=== PATIENT | female | born 1950 | race Caucasian/White ===

== ENCOUNTER 2019-05-13 13:32 | Emergency (ER) | payer MEDICARE, OTHER ==
[~2019-05-13] VITALS: Ht 157.5 cm; Wt 88.9 kg
[2019-05-13] MEDS ORDERED: AMLODIPINE BES2.5 MG PO (13:44)
[2019-05-13] MEDS ORDERED: TIROSINT50 MCG PO (13:45)
[2019-05-13] MEDS ORDERED: DIFLUCAN150 MG PO (13:46)
[2019-05-13] MEDS ORDERED: LIPITOR20 MG PO (13:46)
[2019-05-13] MEDS ORDERED: ALENDRONATE SOD70 MG PO (13:47)
--- NOTE | 2019-05-14 09:19 | EKG ---
[facility] [address] [facility] [place] [address] Signed Normal sinus rhythm Low voltage QRS Borderline ECG No previous ECGs available Confirmed by NIKA GREGG MD ([id number] on 05/14/2019 9:18:56 AM Electronically Signed By: NIKA GREGG MD 05/14/19 0919 PATIENT NAME: AMNA SPENCE Electrocardiogram DATE OF : 50 PHYSICIAN: NIKA GREGG MD REPORT #: [id number] REPORT IS CONFIDENTIAL AND NOT TO BE RELEASED WITHOUT AUTHORIZATION
== END 2019-05-13 17:50 | disposition home or self-care (01) ==
LOC: ED 13:32
DX: R07.9 Chest pain, unspecified (principal); I10 Essential (primary) hypertension; Z88.6 Allergy status to analgesic agent
CPT/HCPCS: 71045; 80053; 83735; 84484; 85025; 99285-25